=== PATIENT | female | born 1975 | race Caucasian/White ===

== ENCOUNTER 2016-09-22 10:13 | Emergency (ER) | payer OTHER ==
[2016-09-22 10:44] VITALS: BP 137/64
--- NOTE | 2016-09-22 11:09 | UC ---
FLU HPI - HPI Summary HPI Summary: Cough, fever, body aches, nasal congestion since yesterday. Denies trouble breathing, but has needed albuterol in the past "with bronchitis." - History of Current Complaint Chief Complaint: UCGeneralIllness Stated Complaint: COUGH,CHILLS,FEVER,ACHES Time Seen by Provider: 09/22/16 10:52 Hx Obtained From: Patient Hx Last Menstrual Period: 08/05/16 ?: No Onset/Duration: Gradual Onset, Lasting Days Severity Currently: Moderate Severity Initially: Moderate Associated Signs & Symptoms: Positive: Fever, Myalgia, Cough, Sore Throat, Nasal Congestion, Headache. Negative: Vomiting, Diarrhea - Allergy/Home Medications Allergies/Adverse Reactions: Allergies Allergy/AdvReac Type Severity Reaction Status Date / Time Clarithromycin [From Biaxin] Allergy Intermediate Vomiting Verified 09/22/16 10: 44 PMH/Surg Hx/FS Hx/Imm Hx Endocrine History Of: Reports: Diabetes Cardiovascular History Of: Reports: Hypertension - Surgical History Surgical History: Yes Surgery Procedure, Year, and Place: 2010 left side fallopian tube and ovary removed - Family History Known Family History: Positive: Hypertension - Social History Occupation: Employed Full-time Alcohol Use: None Substance Use Type: None Smoking Status (MU): Heavy Every Day Tobacco Smoker Amount Used/How Often: 1ppd Household Exposure Type: Cigarettes Cessation Counseling: Patient Advised to Stop - Immunization History Most Recent Influenza Vaccination: Not UTD Review of Systems Constitutional: Fever, Chills, Fatigue Skin: Negative Eyes: Negative ENT: Sore Throat, Nasal Discharge Respiratory: Cough Cardiovascular: Negative Gastrointestinal: Negative Genitourinary: Negative Motor: Negative Neurovascular: Negative Musculoskeletal: Negative Neurological: Negative Psychological: Negative All Other Systems Reviewed And Are Negative: Yes Physical Exam Triage Information Reviewed: Yes Appearance: Pain Distress - with coughing, Obese Vital Signs: Initial Vital Signs Temp 100.9 F 09/22/16 10:40 Pulse 105 09/22/16 10:40 Resp 16 09/22/16 10:40 BP 137/64 09/22/16 10:40 Pulse Ox 97 09/22/16 10:40 Vital Signs Reviewed: Yes Eye Exam: Normal Eyes: Positive: Conjunctiva Clear ENT: Positive: Hearing grossly normal, Pharynx normal, Nasal congestion, Nasal drainage. Negative: Tonsillar swelling, Tonsillar exudate Dental Exam: Normal Neck exam: Normal Neck: Positive: Supple, Nontender, No Lymphadenopathy Respiratory Exam: Other - harsh cough Respiratory: Positive: Lungs clear, Normal breath sounds, No respiratory distress Cardiovascular: Positive: No Murmur, Tachycardia Musculoskeletal Exam: Normal Neurological Exam: Normal Neurological: Positive: Alert Psychological Exam: Normal Skin Exam: Normal Flu Course/Dx - Differential Dx/Diagnosis Provider Diagnoses: Influenza type A. elevated blood pressure due to discomfort Discharge - Discharge Plan Condition: Stable Disposition: HOME Prescriptions: Albuterol HFA INHALER* [Ventolin HFA Inhaler*] 1 - 2 puff INH Q4H PRN #1 mdi PRN Reason: Wheezing Oseltamivir CAP* [Tamiflu CAP*] 75 mg PO BID #10 cap Patient Education Materials: Influenza (ED) Forms: *Work Release
== END 2016-09-22 11:29 | disposition home or self-care (01) ==
LOC: UCEAST 10:13
DX: J10.1 Influenza due to other identified influenza virus with other respiratory manifestations (principal); Z88.1 Allergy status to other antibiotic agents; E11.9 Type 2 diabetes mellitus without complications; I10 Essential (primary) hypertension; E66.9 Obesity, unspecified; F17.210 Nicotine dependence, cigarettes, uncomplicated
CPT/HCPCS: 87502; 99212; G0463

== ENCOUNTER 2017-03-07 17:48 | Emergency (ER) | payer SELFPAY ==
[2017-03-07 17:56] VITALS: BP 141/75
[2017-03-07] MEDS ORDERED: Ketorolac INJ* 30 MG/ML 1 ML VIAL IM ONE (18:30)
--- NOTE | 2017-03-07 19:09 | UC ---
Shoulder Pain HPI - HPI Summary HPI Summary: 41 yo female with left shoulder pain since this AM no trauma has had on and off left shoulder pain x yrs has bilateral CTS - History of Current Complaint Chief Complaint: UCUpperExtremity Stated Complaint: SHOULDER PAIN Time Seen by Provider: 03/07/17 18:25 Hx Obtained From: Patient Hx Last Menstrual Period: 4 wks ago Onset/Duration: Sudden Onset, Lasting Hours Timing: Constant Severity Initially: Severe Severity Currently: Severe Location Of Pain: Is Discrete @ Pain Intensity: 8 Pain Scale Used: 0-10 Numeric Character: Dull, Aching Aggravating Factor(s): Movement Alleviating Factor(s): Ice Associated Signs And Symptoms: Positive: Numbness/Tingling - due to CTS Related History: Dominant Hand Right - Allergies/Home Medications Allergies/Adverse Reactions: Allergies Allergy/AdvReac Type Severity Reaction Status Date / Time Clarithromycin [From Biaxin] Allergy Intermediate Vomiting Verified 03/07/17 17: 56 Home Medications: Home Medications Escitalopram Oxalate [Lexapro 10 mg] 1 cap PO DAILY 03/07/17 [History Confirmed 03/07/17] Glimepiride 1 cap PO DAILY 03/07/17 [History Confirmed 03/07/17] PMH/Surg Hx/FS Hx/Imm Hx Previously Healthy: Yes Endocrine History: Diabetes, Dyslipidemia Cardiovascular History: Hypertension - Surgical History Surgical History: Yes Surgery Procedure, Year, and Place: 2010 left side fallopian tube and ovary removed - Family History Known Family History: Positive: Hypertension - Social History Alcohol Use: None Substance Use Type: None Smoking Status (MU): Heavy Every Day Tobacco Smoker Amount Used/How Often: 1ppd Household Exposure Type: Cigarettes - Immunization History Most Recent Influenza Vaccination: Not UTD Review of Systems Musculoskeletal: Arthralgia Neurological: Paresthesia Is Patient Immunocompromised?: Yes - DM All Other Systems Reviewed And Are Negative: Yes Physical Exam Triage Information Reviewed: Yes Appearance: Well-Appearing, No Pain Distress, Well-Nourished Vital Signs: Initial Vital Signs Temp 99.7 F 03/07/17 17:53 Pulse 96 03/07/17 17:53 Resp 18 03/07/17 17:53 BP 141/75 03/07/17 17:53 Pulse Ox 98 03/07/17 17:53 Vital Signs Reviewed: Yes Eyes: Positive: Conjunctiva Clear ENT: Positive: Hearing grossly normal. Negative: Nasal congestion, Nasal drainage, Trismus, Muffled/hoarse voice Neck: Positive: Supple Respiratory: Positive: Lungs clear, Normal breath sounds, No respiratory distress Cardiovascular: Positive: RRR, No Murmur Musculoskeletal Exam: Other Musculoskeletal: Positive: ROM Limited @ - left shoulder/able to abduct to 15 degrees only/pain witjh ext rotation Neurological: Positive: Alert Psychological: Positive: Age Appropriate Behavior Skin Exam: Normal Diagnostics - Radiology No standard instances Xray Interpretation: Positive (See Comments) - calific tendonitis Radiology Interpretation Completed By: ED Physician Shoulder Course/Dx - Differential Dx/Diagnosis Provider Diagnoses: left calcific tendonitis Discharge - Discharge Plan Condition: Improved Disposition: HOME Patient Education Materials: Calcific Tendinitis (ED) Referrals: [facility] [Outside] - As Soon As Possible Additional Instructions: heat massage Range of motion sling for comfort motrin 600mg 4x day with food
--- NOTE | 2017-03-07 19:20 | RAD ---
Indication: Left shoulder pain. 3 views of left shoulder demonstrates no fracture. Glenohumeral joint is unremarkable. No other bone or joint abnormality is noted. IMPRESSION: No fracture of left shoulder is noted.
== END 2017-03-07 19:20 | disposition home or self-care (01) ==
LOC: UCEAST 17:48
DX: M75.32 Calcific tendinitis of left shoulder (principal); E11.9 Type 2 diabetes mellitus without complications; Z79.84 Long term (current) use of oral hypoglycemic drugs; E78.5 Hyperlipidemia, unspecified; I10 Essential (primary) hypertension; Z88.1 Allergy status to other antibiotic agents; F17.210 Nicotine dependence, cigarettes, uncomplicated
CPT/HCPCS: 96372; 99212; G0463; J1885

== ENCOUNTER 2017-07-07 08:53 | Emergency (ER) | payer OTHER ==
[2017-07-07 09:22] VITALS: BP 147/71
--- NOTE | 2017-07-07 11:14 | UC ---
Respiratory Complaint HPI - HPI Summary HPI Summary: Sore throat body aches, cough for 4 days - History of Current Complaint Chief Complaint: UCGeneralIllness Stated Complaint: CONGESTION Time Seen by Provider: 07/07/17 11:05 Hx Obtained From: Patient Hx Last Menstrual Period: 06/15/17 ?: No Onset/Duration: Lasting Days - 4, Still Present Timing: Constant Severity Initially: Moderate Severity Currently: Moderate Character: Cough: Nonproductive Aggravating Factors: Nothing Alleviating Factors: Nothing Associated Signs And Symptoms: Positive: Chills, URI, Nasal Congestion - Allergies/Home Medications Allergies/Adverse Reactions: Allergies Allergy/AdvReac Type Severity Reaction Status Date / Time Clarithromycin [From Biaxin] Allergy Intermediate Vomiting Verified 07/07/17 09: 22 PMH/Surg Hx/FS Hx/Imm Hx Previously Healthy: No Respiratory History: Asthma - Surgical History Surgical History: Yes Surgery Procedure, Year, and Place: 2010 left side fallopian tube and ovary removed - Family History Known Family History: Positive: Hypertension - Social History Occupation: Employed Full-time Lives: With Family Alcohol Use: None Substance Use Type: None Smoking Status (MU): Heavy Every Day Tobacco Smoker Amount Used/How Often: 1ppd Have You Smoked in the Last Year: Yes Household Exposure Type: Cigarettes Cessation Counseling: Counseled 3+Min - 10 Min - Immunization History Most Recent Influenza Vaccination: Not UTD Review of Systems Constitutional: Chills Skin: Negative Eyes: Negative ENT: Negative Respiratory: Negative Cardiovascular: Negative Gastrointestinal: Negative Genitourinary: Negative Motor: Negative Neurovascular: Negative Musculoskeletal: Negative Neurological: Negative Psychological: Negative Is Patient Immunocompromised?: No All Other Systems Reviewed And Are Negative: Yes Physical Exam Triage Information Reviewed: Yes Appearance: No Pain Distress, Well-Nourished, Ill-Appearing - mild Vital Signs: Initial Vital Signs Temp 97.5 F 07/07/17 09:17 Pulse 81 07/07/17 09:17 Resp 20 07/07/17 09:17 BP 147/71 07/07/17 09:17 Pulse Ox 96 07/07/17 09:17 Vital Signs Reviewed: Yes Eye Exam: Normal Eyes: Positive: Conjunctiva Clear ENT Exam: Normal ENT: Positive: Normal ENT inspection, Hearing grossly normal, Pharynx normal, Nasal congestion, Nasal drainage, TMs normal. Negative: Tonsillar swelling, Tonsillar exudate, Trismus, Muffled voice, Hoarse voice, Dental tenderness, Sinus tenderness, Uvula midline Dental Exam: Normal Neck exam: Normal Neck: Positive: Supple, Nontender, No Lymphadenopathy Respiratory Exam: Normal Respiratory: Positive: Chest non-tender, Lungs clear, Normal breath sounds, No respiratory distress, No accessory muscle use Cardiovascular Exam: Normal Cardiovascular: Positive: RRR, No Murmur, Pulses Normal, Brisk Capillary Refill Musculoskeletal Exam: Normal Musculoskeletal: Positive: Strength Intact, ROM Intact, No Edema Neurological Exam: Normal Neurological: Positive: Alert, Muscle Tone Normal Psychological Exam: Normal Skin Exam: Normal UC Diagnostic Evaluation - Laboratory O2 Sat by Pulse Oximetry: 96 Respiratory Course/Dx - Course Course Of Treatment: Continue albuterol, Doxycycline, prednisone, increase fluids, smoking cesasation information follow with pcp - Differential Dx/Diagnosis Provider Diagnoses: Nicotine dependent, hypertension in poor control, acute exacerbation of chronic bronchitis Discharge - Discharge Plan Condition: Stable Disposition: HOME Prescriptions: Doxycycline (Monohydrate) [Doxycycline Monohydrate] 100 mg PO BID #20 cap predniSONE TAB* [Deltasone TAB*] 20 mg PO DAILY #12 tab Patient Education Materials: How to Stop Smoking (ED), Acute Bronchitis (ED), Hypertension (ED) Forms: *Work Release Referrals: [facility] [Outside] - 1 Week No Primary Care Phys,NOPCP [Primary Care Provider] -
[2017-07-07] MEDS ORDERED: Albuterol/Ipratropium NEB.SOL* Albuterol 2.5 MG/Ipratropium 0.5 MG 3 ML INH ONE (11:15)
[2017-07-07] MEDS ORDERED: predniSONE TAB* 20 MG PO ONE (11:20)
== END 2017-07-07 11:33 | disposition home or self-care (01) ==
LOC: UCEAST 08:53
DX: J20.9 Acute bronchitis, unspecified (principal); J42 Unspecified chronic bronchitis; I10 Essential (primary) hypertension; F17.210 Nicotine dependence, cigarettes, uncomplicated; Z88.3 Allergy status to other anti-infective agents
CPT/HCPCS: 87502; 99212; A9270-GY; G0463; J7512

== ENCOUNTER 2017-07-09 09:03 | Emergency (ER) | payer OTHER ==
[2017-07-09 09:24] VITALS: BP 120/54
--- NOTE | 2017-07-09 09:45 | UC ---
Respiratory Complaint HPI - HPI Summary HPI Summary: COUGH X 7 DAYS CHEST CONGESTION , FEVER, CHILLS NO SORE THROAT, WAS SEEN AT [facility] 2 DAYS AGO, DX WITH BRONCHITIS , WAS PLACED ON PREDNISONE AND DOXY NOT IMPROVING - History of Current Complaint Chief Complaint: UCRespiratory Stated Complaint: WHEEZING COUGH SORE THROAT Time Seen by Provider: 07/09/17 09:36 Hx Obtained From: Patient Hx Last Menstrual Period: 06/15/17 Onset/Duration: Gradual Onset, Lasting Days - 7, Still Present Timing: Constant Severity Initially: Moderate Severity Currently: Moderate Character: Cough: Nonproductive Aggravating Factors: Exertion, Deep Breaths Alleviating Factors: Nothing Associated Signs And Symptoms: Positive: Fever, Chills, Wheezing, URI, Nasal Congestion - Allergies/Home Medications Allergies/Adverse Reactions: Allergies Allergy/AdvReac Type Severity Reaction Status Date / Time Clarithromycin [From Biaxin] Allergy Intermediate Vomiting Verified 07/09/17 09: 25 PMH/Surg Hx/FS Hx/Imm Hx Endocrine History: Diabetes Cardiovascular History: Hypertension - Surgical History Surgical History: Yes Surgery Procedure, Year, and Place: 2010 left side fallopian tube and ovary removed - Family History Known Family History: Positive: Hypertension - Social History Alcohol Use: None Substance Use Type: None Smoking Status (MU): Heavy Every Day Tobacco Smoker Amount Used/How Often: 1ppd Have You Smoked in the Last Year: Yes Household Exposure Type: Cigarettes - Immunization History Most Recent Influenza Vaccination: Not UTD Review of Systems Constitutional: Fever, Chills, Fatigue Skin: Negative Eyes: Negative ENT: Sore Throat, Nasal Discharge Respiratory: Shortness Of Breath, Cough Cardiovascular: Negative Is Patient Immunocompromised?: No All Other Systems Reviewed And Are Negative: Yes Physical Exam Triage Information Reviewed: Yes Appearance: Well-Appearing, No Pain Distress, Well-Nourished Vital Signs: Initial Vital Signs Temp 99.1 F 07/09/17 09:20 Pulse 73 07/09/17 09:20 Resp 20 07/09/17 09:20 BP 120/54 07/09/17 09:20 Pulse Ox 99 07/09/17 09:20 Vital Signs Reviewed: Yes Eye Exam: Normal Eyes: Positive: Conjunctiva Clear ENT: Positive: Normal ENT inspection, Hearing grossly normal, Pharynx normal, Nasal congestion, Nasal drainage, TMs normal Neck: Positive: Supple, Nontender, No Lymphadenopathy Respiratory: Positive: Chest non-tender, Lungs clear, Normal breath sounds Cardiovascular: Positive: RRR, No Murmur, Pulses Normal UC Diagnostic Evaluation - Laboratory O2 Sat by Pulse Oximetry: 99 Respiratory Course/Dx - Differential Dx/Diagnosis Provider Diagnoses: BRONCHITIS Discharge - Discharge Plan Condition: Stable Disposition: HOME Patient Education Materials: Acute Bronchitis (ED) Forms: *Work Release Referrals: Jorge Luis Wise PA [Primary Care Provider] - 7 Days Additional Instructions: CONT. WITH YOUR CURRENT MEDS INCLUDING DOXY AND PREDNISONE AND ALBUTEROL
== END 2017-07-09 09:52 | disposition home or self-care (01) ==
LOC: UCCORT 09:03
DX: J40 Bronchitis, not specified as acute or chronic (principal); E11.9 Type 2 diabetes mellitus without complications; I10 Essential (primary) hypertension; Z88.1 Allergy status to other antibiotic agents; F17.210 Nicotine dependence, cigarettes, uncomplicated
CPT/HCPCS: 99211; G0463

== ENCOUNTER 2017-11-05 14:43 | Emergency (ER) | payer OTHER ==
[2017-11-05 14:54] VITALS: BP 131/70
--- NOTE | 2017-11-05 15:47 | RAD ---
HISTORY: Right toe pain, redness, diabetes COMPARISONS: None VIEWS: 3, Frontal, lateral, and oblique views of the second digit of the right foot FINDINGS: BONE DENSITY: Normal. BONES: There is no displaced fracture. There is no appreciable erosion or periosteal reaction. JOINTS: There is no arthropathy. ALIGNMENT: There is no dislocation. SOFT TISSUES: Unremarkable. OTHER FINDINGS: None. IMPRESSION: NO ACUTE OSSEOUS INJURY. IF SYMPTOMS PERSIST, RECOMMEND REPEAT IMAGING. PLAIN FILM FINDINGS OF OSTEOMYELITIS ARE RELATIVELY LATE FINDINGS. IF THERE IS PERSISTENT CLINICAL CONCERN FOR OSTEOMYELITIS, RECOMMEND CORRELATION WITH FOLLOWUP IMAGING, THREE-PHASE BONE SCANNING, WHITE BLOOD CELL SCAN, AND/OR MRI OF THE AFFECTED REGION.
--- NOTE | 2017-11-05 16:23 | UC ---
Lower Extremity/Ankle HPI - HPI Summary HPI Summary: Patient is a 42-year-old female with a history of diabetes and hypertension presents to the with chief complaint of left second toe pain since yesterday area she denies any known trauma or other injury. The toe is slightly warm and red without swelling. Denies any radiation of pain. She endorses a burning sensation. She takes metformin and glyburide and last A1c was 9.6. - History of Current Complaint Chief Complaint: UCLowerExtremity Stated Complaint: RIGHT TOE COMPLAINT Time Seen by Provider: 11/05/17 15:14 Hx Obtained From: Patient Hx Last Menstrual Period: 10/16/17 ?: No Onset/Duration: Sudden Onset Severity Initially: Mild Severity Currently: Mild Pain Intensity: 4 Pain Scale Used: 0-10 Numeric Aggravating Factor(s): Standing, Ambulation Alleviating Factor(s): Rest Able to Bear Weight: Yes - Risk Factors Gout Risk Factors: Age Over 40, Diabetes DVT Risk Factors: Negative Septic Arthritis Risk Factor: Immunosuppressed - Allergies/Home Medications Allergies/Adverse Reactions: Allergies Allergy/AdvReac Type Severity Reaction Status Date / Time clarithromycin [From Biaxin] Allergy Vomiting Verified 11/05/17 14:55 PMH/Surg Hx/FS Hx/Imm Hx Previously Healthy: Yes - Surgical History Surgical History: Yes Surgery Procedure, Year, and Place: 2010 left side fallopian tube and ovary removed - Family History Known Family History: Positive: Hypertension - Social History Occupation: Employed Full-time Lives: With Family Alcohol Use: None Substance Use Type: None Smoking Status (MU): Heavy Every Day Tobacco Smoker Amount Used/How Often: 1ppd Have You Smoked in the Last Year: Yes Household Exposure Type: Cigarettes - Immunization History Most Recent Influenza Vaccination: Not UTD Review of Systems Constitutional: Negative Skin: Negative ENT: Negative Motor: Negative Neurovascular: Decreased Sensation Musculoskeletal: Arthralgia - second toe left foot Neurological: Negative Is Patient Immunocompromised?: No All Other Systems Reviewed And Are Negative: Yes Physical Exam Triage Information Reviewed: Yes Appearance: Well-Appearing, Well-Nourished Vital Signs: Initial Vital Signs Temp 98.8 F 11/05/17 14:51 Pulse 91 11/05/17 14:51 Resp 16 11/05/17 14:51 BP 131/70 11/05/17 14:51 Pulse Ox 100 11/05/17 14:51 Vital Signs Reviewed: Yes Eye Exam: Normal Eyes: Positive: Conjunctiva Clear Neck exam: Normal Neck: Positive: Supple, No Lymphadenopathy Respiratory Exam: Normal Respiratory: Positive: Chest non-tender Cardiovascular Exam: Normal Cardiovascular: Positive: RRR Musculoskeletal Exam: Normal Musculoskeletal: Positive: Strength Intact Psychological Exam: Normal Psychological: Positive: Normal Response To Family Skin: Positive: Other - erythematous warm second L toe without swelling Lower Extremity Course/Dx - Course Course Of Treatment: During the course of treatment, the patient is sent for x- ray. IMPRESSION: NO ACUTE OSSEOUS INJURY. IF SYMPTOMS PERSIST, RECOMMEND REPEAT IMAGING. PLAIN FILM. FINDINGS OF OSTEOMYELITIS ARE RELATIVELY LATE FINDINGS. IF THERE IS PERSISTENT CLINICAL. CONCERN FOR OSTEOMYELITIS, RECOMMEND CORRELATION WITH FOLLOWUP IMAGING, THREE-PHASE BONE. SCANNING, WHITE BLOOD CELL SCAN, AND/OR MRI OF THE AFFECTED REGION. Called Dr. Orona at 4: 10 PM who suggests starting on antibiotics and will follow-up with her tomorrow in clinic. - Differential Dx/Diagnosis Provider Diagnoses: Toe pain Discharge - Sign-Out/Discharge Documenting (check all that apply): Discharge/Admit/Transfer - Discharge Plan Condition: Stable Disposition: HOME Prescriptions: Cephalexin CAP* [Keflex CAP*] 500 mg PO QID #28 cap MDD 4 Patient Education Materials: Osteomyelitis (ED) Forms: *Work Release Referrals: Jose R Carlos MD [Medical Doctor] - Jorge Luis Wise PA [Primary Care Provider] - Additional Instructions: I am only giving you information about osteomyelitis, not diagnosing you with this Please see Dr. Long tomorrow Keflex four times daily - Billing Disposition and Condition Condition: STABLE Disposition: HOME
== END 2017-11-05 16:30 | disposition home or self-care (01) ==
LOC: UCEAST 14:43
DX: M79.675 Pain in left toe(s) (principal); E11.9 Type 2 diabetes mellitus without complications; I10 Essential (primary) hypertension; Z79.84 Long term (current) use of oral hypoglycemic drugs; Z88.1 Allergy status to other antibiotic agents; F17.210 Nicotine dependence, cigarettes, uncomplicated
CPT/HCPCS: 99212; G0463

== ENCOUNTER 2018-12-05 07:37 | Emergency (ER) | payer OTHER ==
[2018-12-05 07:46] VITALS: BP 140/62
[2018-12-05] MEDS ORDERED: Albuterol/Ipratropium NEB.SOL* Albuterol 2.5 MG/Ipratropium 0.5 MG 3 ML INH ONE (08:03)
--- NOTE | 2018-12-05 08:03 | UC ---
Respiratory Complaint HPI - HPI Summary HPI Summary: pt is smoker, has never been dx with asthma but feels she has had asthma attacks in past. usually uses son's albuterol inhaler with relief. This time she was having wheezing and cough yesterday, used inhaler and no better. Today cont to have wheezing and SOB. Last used albuterol last raymond. denies recent illness or fever, denies feeling sick, "just trouble breathing" - History of Current Complaint Chief Complaint: UCRespiratory Stated Complaint: URI Time Seen by Provider: 12/05/18 07:57 Hx Obtained From: Patient Hx Last Menstrual Period: 11/24/18 ?: No Onset/Duration: Gradual Onset Severity Initially: Mild Severity Currently: Moderate Pain Intensity: 5 Character: Cough: Nonproductive Aggravating Factors: Exertion Alleviating Factors: Nothing Associated Signs And Symptoms: Negative: Fever, Chills, Hemoptysis, Dizziness, Calf Pain, Sinus Discomfort - Allergies/Home Medications Allergies/Adverse Reactions: Allergies Allergy/AdvReac Type Severity Reaction Status Date / Time clarithromycin [From Biaxin] Allergy Vomiting Verified 12/05/18 07:46 Home Medications: Home Medications Albuterol 2.5MG/3ML (0.083%)* [Ventolin 2.5 MG/3 ML NEB.TABATHA*] 1 unit INH ONCE PRN 12/05/18 [History Confirmed 12/05/18] Sitagliptin Phosphate [Januvia] 1 tab PO DAILY 12/05/18 [History Confirmed 12/05] PMH/Surg Hx/FS Hx/Imm Hx Previously Healthy: Yes Endocrine History: Diabetes Cardiovascular History: Hypertension Psychological History: Anxiety, Depression - Surgical History Surgical History: Yes Surgery Procedure, Year, and Place: 2010 left side fallopian tube and ovary removed - Family History Known Family History: Positive: Hypertension - Social History Occupation: Employed Full-time Lives: With Family Alcohol Use: None Substance Use Type: None Smoking Status (MU): Heavy Every Day Tobacco Smoker Amount Used/How Often: 1ppd Have You Smoked in the Last Year: Yes Household Exposure Type: Cigarettes Cessation Counseling: Counseled 3+Min - 10 Min - Immunization History Most Recent Influenza Vaccination: Not UTD Review of Systems All Other Systems Reviewed And Are Negative: Yes Constitutional: Positive: Negative Skin: Positive: Negative. Negative: Rash ENT: Negative: Sore Throat, Sinus Congestion Respiratory: Positive: Shortness Of Breath, Cough Cardiovascular: Positive: Negative. Negative: Palpitations, Chest Pain Neurological: Positive: Negative. Negative: Headache Psychological: Positive: Negative Is Patient Immunocompromised?: No Physical Exam Triage Information Reviewed: Yes Appearance: Well-Appearing, Obese Vital Signs: Initial Vital Signs Temp 98.9 F 12/05/18 07:41 Pulse 88 12/05/18 07:41 Resp 32 12/05/18 07:41 BP 140/62 12/05/18 07:41 Pulse Ox 92 12/05/18 07:41 Vital Signs Reviewed: Yes Eye Exam: Normal Eyes: Positive: Conjunctiva Clear ENT Exam: Normal ENT: Positive: Pharynx normal. Negative: Sinus tenderness Respiratory: Positive: No respiratory distress, Wheezing Cardiovascular Exam: Normal Cardiovascular: Positive: RRR, No Murmur, Pulses Normal Neurological Exam: Normal Psychological Exam: Normal Skin Exam: Normal Re-Evaluation - Re-Evaluation First Eval Re-Evaluation Time: 08:30 - wheezing sig improved on auscultation Change: Improved - pt states she feels better, less SOB, not coughing as frequently. cont to deny CP Respiratory Course/Dx - Differential Dx/Diagnosis Differential Diagnosis/HQI/PQRI: Asthma, Bronchitis, Pulmonary Embolism Provider Diagnosis: Bronchospasm, acute Discharge - Sign-Out/Discharge Documenting (check all that apply): Patient Departure All imaging exams completed and their final reports reviewed: No Studies - Discharge Plan Condition: Improved Disposition: HOME Prescriptions: Albuterol HFA INHALER* [Ventolin HFA Inhaler*] 1 - 2 puff INH Q4H PRN #1 mdi PRN Reason: Wheezing predniSONE TAB* [Deltasone TAB*] 50 mg PO DAILY #3 tab Patient Education Materials: Bronchospasm (ED) Referrals: Jorge Luis Wise PA [Primary Care Provider] - 1 Day (call tomorrow to be seen this week for recheck) Additional Instructions: Rest and use albuterol and prednisone as prescribed report to ER if your symptoms worsen or you develop a fever or chest pain - Billing Disposition and Condition Condition: IMPROVED Disposition: Home
== END 2018-12-05 08:50 | disposition home or self-care (01) ==
LOC: UCEAST 07:37
DX: J98.01 Acute bronchospasm (principal); E11.9 Type 2 diabetes mellitus without complications; I10 Essential (primary) hypertension; F41.9 Anxiety disorder, unspecified; F32.9 Major depressive disorder, single episode, unspecified; F17.210 Nicotine dependence, cigarettes, uncomplicated
CPT/HCPCS: 99212; A9270-GY; G0463

== ENCOUNTER 2019-08-31 08:30 | Emergency (ER) | payer OTHER ==
[2019-08-31 08:56] VITALS: BP 115/62
--- NOTE | 2019-08-31 10:35 | UC ---
General HPI - HPI Summary HPI Summary: Yesterday started with sore throat. no fever. Had a URI last week, still coughing from that. Smokes 1 ppd - used her inhaler once yesterday. No N/V/D. Appetite ok. Trying to drink more water Glucose this AM was 171 meds: reviewed - History of Current Complaint Chief Complaint: UCGeneralIllness Stated Complaint: SORE THROAT COUGH Time Seen by Provider: 08/31/19 09:58 Hx Last Menstrual Period: Pain Intensity: 6 - Allergy/Home Medications Allergies/Adverse Reactions: Allergies Allergy/AdvReac Type Severity Reaction Status Date / Time clarithromycin [From Biaxin] Allergy Vomiting Verified 08/31/19 08:56 Home Medications: Home Medications Ibuprofen 600 mg PO Q8HR PRN 07/02/12 [History Confirmed 12/05/18] Lisinopril [Lisinopril 20 MG-] 20 mg PO DAILY 09/25/14 [History Confirmed ] Metformin HCl [Glucophage] 1,000 mg PO BID 09/25/14 [History Confirmed 12/05/18] Escitalopram Oxalate [Lexapro 10 mg] 1 cap PO DAILY 03/07/17 [History Confirmed 12/05/18] Albuterol HFA INHALER* [Ventolin HFA Inhaler*] 1 - 2 puff INH Q4H PRN #1 mdi [Rx] Amoxicillin PO (*) [Amoxicillin 500 MG CAP*] 500 mg PO Q12H #20 cap 08/31/19 [Rx ] Semaglutide [Ozempic] 0.25 mg SUBCUT WE 08/31/19 [History Confirmed 08/31/19] PMH/Surg Hx/FS Hx/Imm Hx Endocrine History: Diabetes Respiratory History: Asthma - Surgical History Surgical History: Yes Surgery Procedure, Year, and Place: 2010 left side fallopian tube and ovary removed - Family History Known Family History: Positive: Hypertension - Social History Alcohol Use: None Substance Use Type: None Smoking Status (MU): Heavy Every Day Tobacco Smoker Amount Used/How Often: 1ppd Have You Smoked in the Last Year: Yes Household Exposure Type: Cigarettes - Immunization History Most Recent Influenza Vaccination: Not UTD Review of Systems All Other Systems Reviewed And Are Negative: Yes Constitutional: Positive: Negative ENT: Positive: Sore Throat, Nasal Discharge Respiratory: Positive: Cough Physical Exam Triage Information Reviewed: Yes Appearance: Well-Appearing Vital Signs: Initial Vital Signs Temp 98.1 F 08/31/19 08:52 Pulse 77 08/31/19 08:52 Resp 18 08/31/19 08:52 BP 115/62 08/31/19 08:52 Pulse Ox 98 08/31/19 08:52 Eyes: Positive: Conjunctiva Clear ENT: Positive: Pharyngeal erythema, Nasal drainage, TMs normal, Tonsillar swelling Neck: Positive: Supple, Enlarged Nodes @ - anterior cervical chain Respiratory: Positive: Lungs clear, Decreased breath sounds Cardiovascular: Positive: RRR, No Murmur Course/Dx - Course Course Of Treatment: This is a 44 yr old with a sore throat rapid strep: positive Nontoxic appearing Plan Start Amoxicillin as prescribed Continue to rest, drink plenty of fluids and ibuprofen as needed for pain or fever If symptoms persist or worsen, recommend follow up with your PCP or return to urgent care - Diagnoses Provider Diagnosis: Strep throat Discharge ED - Sign-Out/Discharge Documenting (check all that apply): Patient Departure All imaging exams completed and their final reports reviewed: No Studies - Discharge Plan Condition: Good Disposition: HOME Prescriptions: Amoxicillin PO (*) [Amoxicillin 500 MG CAP*] 500 mg PO Q12H #20 cap Patient Education Materials: Strep Throat (ED) Forms: *Work Release Referrals: Jorge Luis Wise PA [Primary Care Provider] - Additional Instructions: Start Amoxicillin as prescribed Continue to rest, drink plenty of fluids and ibuprofen as needed for pain or fever If symptoms persist or worsen, recommend follow up with your PCP or return to urgent care - Billing Disposition and Condition Condition: GOOD Disposition: Home
== END 2019-08-31 10:45 | disposition home or self-care (01) ==
LOC: UCEAST 08:30
DX: J02.0 Streptococcal pharyngitis (principal); J45.909 Unspecified asthma, uncomplicated; E11.9 Type 2 diabetes mellitus without complications; F17.210 Nicotine dependence, cigarettes, uncomplicated; Z88.1 Allergy status to other antibiotic agents; Z79.84 Long term (current) use of oral hypoglycemic drugs
CPT/HCPCS: 87651; 99212; G0463